=== PATIENT | female | born 1970 | race Caucasian/White ===

== ENCOUNTER 2018-12-12 06:32 | Emergency (ER) | payer MEDICAID ==
[2018-12-12 07:34] LABS: URINE BLOOD (Dip) POC Negative (NEGATIVE); URINE GLUCOSE (Dip) POC Negative (NEGATIVE); URINE KETONES (Dip) POC Negative (NEGATIVE); URINE LEUKOCYTE EST (Dip) POC Trace (NEGATIVE); URINE NITRITE (Dip) POC Negative (NEGATIVE); URINE TOTAL PROTEIN POC Negative (NEGATIVE)
[2018-12-12] MEDS: KETOROLAC 30 MG INJ IM (07:46)
== END 2018-12-12 08:50 | disposition home or self-care (01) ==
LOC: FTE 06:32
DX: S29.012A Strain of muscle and tendon of back wall of thorax, initial encounter (principal); E11.9 Type 2 diabetes mellitus without complications; X58.XXXA Exposure to other specified factors, initial encounter; Y92.9 Unspecified place or not applicable
CPT/HCPCS: 72072; 81003; 81025; 96372; 99284-25